=== PATIENT | male | born 1990 | race African-American/Black ===

== ENCOUNTER 2018-01-01 22:25 | Emergency (ER) | payer SELFPAY ==
[~2018-01-01] VITALS: Ht 175.3 cm; Wt 76.7 kg
[2018-01-01 22:31] VITALS: BP 145/82
[2018-01-01] MEDS: KETOROLAC 60 MG/2 ML VIAL IM ONE (22:51)
[2018-01-02 00:24] VITALS: BP 133/72
== END 2018-01-02 00:21 | disposition home or self-care (01) ==
LOC: MED 22:25
DX: M79.604 Pain in right leg (principal); F17.200 Nicotine dependence, unspecified, uncomplicated
CPT/HCPCS: 96372; 99283; J1885